=== PATIENT | female | born 1995 | race Caucasian/White ===

== ENCOUNTER → 2022-03-07 13:10 | Outpatient (BNVA) | payer BC, SELFPAY | PROVIDERS: Visit Provider Obstetrics & Gynecology | DX: Z34.90 Encounter for supervision of normal pregnancy, unspecified, unspecified trimester (principal); N92.6 Irregular menstruation, unspecified | CPT/HCPCS: 80307; 81025; 84443; 85025; 86592; 86762; 86803; 86850; 86900; 87086; 87340; 87491; 87591; 87661; 87806; 88175 ==

== ENCOUNTER → 2022-04-08 09:09 | Outpatient (BNVA) | payer BC, MEDICAID, SELFPAY | PROVIDERS: Visit Provider Obstetrics & Gynecology | DX: Z34.90 Encounter for supervision of normal pregnancy, unspecified, unspecified trimester (principal) | CPT/HCPCS: 81000 ==

== ENCOUNTER → 2022-05-11 09:29 | Outpatient (BNVA) | payer BC, MEDICAID, SELFPAY | PROVIDERS: Visit Provider Obstetrics & Gynecology | DX: O09.299 Supervision of pregnancy with other poor reproductive or obstetric history, unspecified trimester (principal); O09.40 Supervision of pregnancy with grand multiparity, unspecified trimester; Z3A.00 Weeks of gestation of pregnancy not specified | CPT/HCPCS: 81000 ==

== ENCOUNTER → 2022-06-15 16:00 | Outpatient (BNVA) | payer BC, MEDICAID, SELFPAY | PROVIDERS: Visit Provider Obstetrics & Gynecology | DX: O09.40 Supervision of pregnancy with grand multiparity, unspecified trimester (principal); Z3A.00 Weeks of gestation of pregnancy not specified | CPT/HCPCS: 81000 ==

== ENCOUNTER → 2022-06-24 12:20 | Outpatient (BNVA) | payer BC, MEDICAID, SELFPAY | PROVIDERS: Visit Provider Obstetrics & Gynecology | DX: O09.40 Supervision of pregnancy with grand multiparity, unspecified trimester (principal) | CPT/HCPCS: 81000; 82950; 85025 ==

== ENCOUNTER → 2022-07-08 09:09 | Outpatient (BNVA) | payer BC, MEDICAID, SELFPAY | PROVIDERS: Visit Provider Obstetrics & Gynecology | DX: O09.40 Supervision of pregnancy with grand multiparity, unspecified trimester (principal); Z3A.00 Weeks of gestation of pregnancy not specified | CPT/HCPCS: 81000 ==

== ENCOUNTER → 2022-07-20 09:00 | Outpatient (BNVA) | payer BC, MEDICAID, SELFPAY | PROVIDERS: Visit Provider Obstetrics & Gynecology | DX: O09.40 Supervision of pregnancy with grand multiparity, unspecified trimester (principal); Z3A.00 Weeks of gestation of pregnancy not specified | CPT/HCPCS: 81000 ==

== ENCOUNTER → 2022-08-03 13:20 | Outpatient (BNVA) | payer BC, MEDICAID, SELFPAY | PROVIDERS: Visit Provider Obstetrics & Gynecology | DX: O09.299 Supervision of pregnancy with other poor reproductive or obstetric history, unspecified trimester (principal); O09.40 Supervision of pregnancy with grand multiparity, unspecified trimester; Z3A.00 Weeks of gestation of pregnancy not specified | CPT/HCPCS: 81000; 85025 ==

== ENCOUNTER → 2022-08-25 10:58 | Outpatient (BNVA) | payer BC, MEDICAID, SELFPAY | PROVIDERS: Visit Provider Obstetrics & Gynecology | DX: O09.40 Supervision of pregnancy with grand multiparity, unspecified trimester (principal) | CPT/HCPCS: 81000 ==

== ENCOUNTER → 2022-09-02 10:00 | Outpatient (BNVA) | payer BC, MEDICAID, SELFPAY | PROVIDERS: Visit Provider Obstetrics & Gynecology | DX: O09.40 Supervision of pregnancy with grand multiparity, unspecified trimester (principal); Z3A.00 Weeks of gestation of pregnancy not specified | CPT/HCPCS: 81000; 87081 ==

== ENCOUNTER 2022-09-14 17:23 | Inpatient (IN) | payer BC, MEDICAID, SELFPAY ==
[2022-09-14] VITALS (11 sets, daily range): BP systolic 114–143; BP diastolic 54–76; PULSE 60–96; RESP 18; TEMP 36.3–36.9
[2022-09-14] MEDS: oxytocin 30 UNIT/500 ML BAG 600 UNIT IV (17:35)
[2022-09-14] MEDS: dextrose 5%-lactated ringers 1,000 ML 125 ML IV (17:35)
--- NOTE | 2022-09-14 17:35 | PM.OPHPUD ---
Labor & Delivery H&P Update Date of Procedure: September 15, 2022 Date H&P Performed: 09/02/22 H&P update information: I have reviewed H&P completed within last 30 days, I have examined patient prior to procedure and Changes to prior documentation as noted here (Cervix: Fully dilated, complete effacement, +2 station, cephalic presentation, SROM membranes clear fluid) Admission Diagnosis:
--- NOTE | 2022-09-14 17:40 | P.PCNOB_ITS ---
Delivery Note: Date of delivery: September 14, 2022 Pre-delivery diagnoses: Intrauterine at 40 weeks Post-delivery diagnoses: Term delivered Procedure: Spontaneous vaginal delivery Delivering Physician: Abner Ly MD Estimated blood loss (mL): 300 Delivery: The patient came to labor and delivery was noted to be complete and pushing, so was placed in the dorsal lithotomy position, prepped and draped in the usual sterile fashion for a vaginal delivery. Pt. Noted not to have epidural anesthesia. Had a rapid progression of labor and at 1730 the patient delivered a viable 40-week male weighing 4050 g with scores of 8 and 9 at one and five minutes, respectively. The vertex was delivered spontaneously over intact perineum. The patient was asked to push and the head delivered spontaneously in the MARTELL position, over an intact perineum. A nuchal cord was checked and 1 noted, and delivered through around head as necessary. The anterior shoulder delivered easily and the posterior shoulder followed. The remainder of the infant was easily delivered and the oropharynx and nasopharynx was bulb suctioned. The infant was noted to have spontaneous cry and spontaneous movement of all four extremities. The cord was clamped x 2 and cut and noted to have 2 arteries and one vein. The infant was passed to the mother's abdomen where nursing personnel were in attendance. Cord blood sample was then obt ained. The placenta delivered intact spontaneously and the uterus was explored. 20 units of Pitocin was placed in the IV bag to firm the uterus. Examination of the cervix and vaginal vault did not reveal any lacerations. A vaginal pack was then placed. Examination of the perineum showed no lacerations. The patient tolerated this procedure well, and recovered in L&D with her in their LDR room. All sponge and needle counts were correct. History History History 5 Term 3 1 Miscarriages/Ectopic 0 Living Children 3 Coding Level of Care Code Acute Code for Chg Fwd
[2022-09-14 17:53] LABS: Basophils % 0.1 %; Eosinophils % 0.1 %; Hematocrit 41.4 % (37.0-47.0); Hemoglobin 13.8 g/dL (11.5-15.3); Lymphocytes # 1.1 10^3/uL (0.8-4.8); Lymphocytes % 7.6 %; Mean Corpuscular HGB Conc 33.3 g/dL (30.0-36.0); Mean Corpuscular Hemoglobin 31.3 pg (28.0-34.0); Mean Corpuscular Volume 93.9 fl (81-99); Mean Platelet Volume 12.1 fL (7.4-10.4); Monocytes # 0.6 10^3/uL (0.2-0.9); Monocytes % 4.3 %; Neutrophils # 12.84 10^3/uL (1.8-7.7); Neutrophils % 87.4 %; Nucleated Red Blood Cells % 0 %; Platelet Count 208 10^3/cmm (130-400); Red Blood Count 4.41 10^6/uL (4.1-5.3); Red Cell Distribution Width 12.3 % (12.1-15.1); White Blood Count 14.7 10^3/uL (4.0-10.0)
--- NOTE | 2022-09-14 20:00 | PC.NURSE ---
Mother has requested that if possible baby stay in the room for testing and that she would like to have as much alone time with baby as possible. She did say it was okay to obtain baby's vitals as needed and that it was okay for me to round on them and make sure they do not need anything. She said she would let me know if she has increased bleeding but that for now her bleeding is doing good.
[2022-09-15 04:27] VITALS: BP 109/62; PULSE 56; TEMP 36.2
[2022-09-15 06:13] LABS: Hemoglobin 12.2 g/dL (11.5-15.3); Mean Corpuscular Hemoglobin 31.3 pg (28.0-34.0); Mean Corpuscular Volume 94.9 fl (81-99); Mean Platelet Volume 11.6 fL (7.4-10.4); Platelet Count 180 10^3/cmm (130-400); Red Cell Distribution Width 12.5 % (12.1-15.1); White Blood Count 15.3 10^3/uL (4.0-10.0)
[2022-09-15] MEDS: prenatal vitamin Capsule 1 CAP PO (08:26)
[2022-09-15 09:52] VITALS: BP 123/75; PULSE 65; TEMP 36.8
--- NOTE | 2022-09-15 15:57 | PM.OBGYDC ---
Discharge Providers FORESTRY AIDE Date of Admission: 09/14/22 17:23 Date of Discharge: 09/15/22 Attending Provider at Admission: Abner Ly MD Attending Provider at Discharge: Abner Ly MD Reason for Visit Reason for Visit: contractions Brief History: Ms. Medrano is a 27 year old established patient with an LMP of 12/07/21, an CLEOPATRA of 09/13/22 based on her LMP placing her at 40+1 weeks gestation . Hospital Course Hospital Course Ms. Medrano is a 27 year old established patient with an LMP of 12/07/21, an CLEOPATRA of 09/13/22 based on her LMP placing her at 40+1 weeks gestation came to labor and delivery complaining of contractions. Upon examination she was in Va stage of labor 8 to 9 cm and dilation completely effaced. She had a spontaneous rupture of membranes and had a rapid progression of labor and had a spontaneous vaginal delivery without epidural or IV fluids in place. No complications. overnight observation was uneventful. Ambulating without difficulty. Tolerating diet well. She is after vomiting hemodynamically stable day 1. She was counseled regarding pelvic rest for 6 weeks (no sex, no tampons, no vaginal douches). Return to the emergency room if any fever, increased bleeding or pain. Information Peripartum Data: Delivery Method: Vaginal Physical Exam Narrative: GA; alert and oriented x 3 HEENT: normal Breasts: engorged Nipples - skin intact Lungs; clear to auscultation Heart: regular rhythm, no murmurs. Abd: Appropriately tender. BS+. Uterine fundus below umbilicus. No Fundal Tenderness. Perineum: normal lochia. Extremities: no edema, no cyanosis, no tenderness. History History History 5 Term 3 1 Miscarriages/Ectopic 0 Living Children 3 Discharge Data Studies Completed and Pending Laboratory Results WBC 15.3 10^3/uL (4.0-10.0) H 09/15/22 06:00 RBC 3.90 10^6/uL (4.1-5.3) L 09/15/22 06:00 Hgb 12.2 g/dL (11.5-15.3) 09/15/22 06:00 Hct 37.0 % (37.0-47.0) 09/15/22 06:00 MCV 94.9 fl (81-99) 09/15/22 06:00 MCH 31.3 pg (28.0-34.0) 09/15/22 06:00 MCHC 33.0 g/dL (30.0-36.0) 09/15/22 06:00 RDW 12.5 % (12.1-15.1) 09/15/22 06:00 Plt Count 180 10^3/cmm (130-400) 09/15/22 06:00 MPV 11.6 fL (7.4-10.4) H 09/15/22 06:00 Neut % (Auto) 87.4 % 09/14/22 17:20 Lymph % (Auto) 7.6 % 09/14/22 17:20 [place] % (Auto) 4.3 % 09/14/22 17:20 Eos % (Auto) 0.1 % 09/14/22 17:20 Baso % (Auto) 0.1 % 09/14/22 17:20 Neut # (Auto) 12.84 10^3/uL (1.8-7.7) H 09/14/22 17:20 Lymph # (Auto) 1.1 10^3/uL (0.8-4.8) 09/14/22 17:20 [place] # (Auto) 0.6 10^3/uL (0.2-0.9) 09/14/22 17:20 Eos # (Auto) 0.0 10^3/uL (0.0-0.8) 09/14/22 17:20 Baso # (Auto) 0.0 10^3/uL (0.0-0.1) 09/14/22 17:20 Nucleated RBC % (auto) 0 % 09/14/22 17:20 Nucleated RBCs # 0.0 /100WBC 09/14/22 17:20 Vitals Last Vital Signs Temp 98.2 F 09/15/22 09:52 Pulse 65 09/15/22 09:52 Resp 18 09/14/22 18:21 BP 123/75 09/15/22 09:52 O2 Del Method 09/14/22 17:45 Discharge Plan Discharge Patient Disposition: Home Condition: Stable Prescriptions: New acetaminophen 325 mg capsule 325 mg PO Q4H PRN (Reason: fever or pain) Qty: 60 0RF docusate sodium [Colace] 100 mg capsule 100 mg PO BID Qty: 60 0RF ibuprofen 800 mg tablet 800 mg PO TID PRN (Reason: pain) Qty: 60 0RF Continued azithromycin 250 mg tablet See Rx Instructions PO .COMPLEX Qty: 6 0RF Rx Instructions: take 500 mg today (day 1), then 250 mg for 4 days (days 2-5) PO prenat.vits,migel,[id number]-[id number] Tablet 1 tab PO DAILY Discharge Orders: Discharge Order (Routine); Ordered 09/15/22 Ordered By: Abner Ly Referrals: Katina Sofia MD [Physician] - 6 Weeks Discharge Diet: Usual diet Discharge Activity: Limit activity as instructed Patient Instructions: Depression (DC), Preeclampsia and Eclampsia After Delivery (GEN), OB Discharge Report, OB Home Care, OB Vaginal Deliveries - [facility], Abnormal Bleeding, Opioid Safety Activity Restrictions/Additional Instructions: 1. Please call [facility] on next working day to make your post-operative appointment in 2 weeks. 2. Please stay home until you come back to the clinic on first post-operative check up. 3. Please follow instructions on your medications CAREFULLY. 4. If you have abdominal incision, do not cover it unless dressing is necessary because of drainage. OK to shower, but avoid bath. Leave steri-strips until they fall off. If they are still on one week after surgery, you may remove them. 5. If you had vaginal surgery or vaginal repair, Dr. Ly may instruct you to take SITZ bath. 6. Yellow, blood tinged odorous vaginal discharge is usually normal after hysterectomy or vaginal surgeries. 7. No sexual intercourse, tampons, or douches until you are completely released from the post-operative care. 8. Avoid constipation by eating right and maybe using some Metamucil or Milk of Magnesia. 9. All prescription refills are given during the working hours. Please do no wait till it runs out. Call the clinic at [phone] before your medication runs out. The clinic will get in touch with your doctor to prescribe medications if necessary. 10. Please remain within 40 mile radius from our hospital because emergencies do happen now and then during the post-operative period. 11. If you have stairs at home, take one step at a time slowly and minimize the number of trips. It helps to stay in one floor for the next few days. No lifting except what you can lift by one hand until you are released from the post-operative care. 12. Driving is discouraged until you are well healed. It may be 3-4 weeks before you feel strong enough to drive. You should be able to turn and look through the rear window without pain and you should be able to push the brake pedal very hard without pain before you drive. No fast rules, but SAFETY should be your primary concern. DO NOT drive if you are on sedating medications such as narcotics. 13. Call the clinic (during working hours) to make urgent appointment or go to the Emergency room, if any of the following occurs: i. Vaginal bleeding becomes heavy, more than a period. ii. Incision becomes red and sore, or drains pus. iii. Your temperature is over 100.4 or you have chill. iv. IV site becomes red and swollen (a little ``knot?? is usually OK) v. Persistent nausea and vomiting vi. Persistent constipation or diarrhea vii. Rash or allergic reaction to medications. Discharge Attestations FORESTRY AIDE Time Spent in Discharge Care*: greater than 30 min Coding Level of Care Code Acute Code for Chg Fwd
[2022-09-15 18:00] VITALS: RESP 16
[2022-09-15 18:35] VITALS: RESP 16
== END 2022-09-15 18:35 | disposition home or self-care (01) | DRG 807 ==
LOC: OPOB 17:23 → OBGYN 17:23
PROVIDERS: Obstetrics & Gynecology; Admitting Provider Obstetrics & Gynecology; Visit Provider Obstetrics & Gynecology
DX: O48.0 Post-term pregnancy (principal); Z37.0 Single live birth; Z3A.40 40 weeks gestation of pregnancy; Z87.59 Personal history of other complications of pregnancy, childbirth and the puerperium
CPT/HCPCS: 36415; 59409; 85025; 85027; 99211; J2590; J7121